=== PATIENT | female | born 1950 | race Caucasian/White ===

== ENCOUNTER 2020-09-12 11:09 | Outpatient (RCR) | payer MEDICARE, OTHER, SELFPAY ==
[2016-12-09 00:14] VITALS: BMI 29.5
== END 2020-09-12 23:59 ==
LOC: IMMUN 11:09
PROVIDERS: PCP Nurse Practitioner; Visit Provider Family Medicine
DX: Z23 Encounter for immunization (principal)
CPT/HCPCS: 0011A; 0012A; 91301

== ENCOUNTER → 2024-11-20 | Outpatient (CLI) | payer MEDICARE, OTHER, SELFPAY ==
--- NOTE | 2024-11-20 16:15 | MRI_ITS ---
EXAM: MRI right knee CLINICAL HISTORY: Knee pain COMPARISON: X-ray 10/11/2024 TECHNIQUE: Multiplanar spin echo magnetic resonance images of the right knee and a [place] strength magnet FINDINGS: 3 cm complex tear of the posterior horn of the medial meniscus including a 2 cm trizonal flap tear extending to the inferior surface and a 1 cm full-thickness radial tear of the root of the medial meniscus with extrusion of the body. Moderate medial compartment chondromalacia with subchondral edema of the medial femoral condyle. Associated medial capsulitis. The medial collateral ligament is intact. No lateral meniscus tear. No lateral compartment chondromalacia. No subchondral edema. The fibular collateral ligament is intact. Anterior cruciate ligament is intact. Posterior cruciate ligament is intact. Normal patellofemoral compartment. Small joint effusion. Ill-defined edema posteriorly may represent a ruptured Hooker's cyst. MRI/Lower Ext Joint Only (Routine) IMPRESSION: 3 cm complex tear of the posterior horn of the medial meniscus including a 1 cm trizonal radial tear of the root of the posterior horn with extrusion of the body, moderate chondromalacia, subchondral edema of the medial femoral condyle, and medial capsulitis. Small joint effusion with a possibly ruptured Hooker's cyst. Reading Location: [id number]
== END | disposition home or self-care (01) ==
LOC: MRI 11:03
PROVIDERS: PCP Internal Medicine; Referring Provider Orthopaedic Surgery; Visit Provider Orthopaedic Surgery
DX: M25.561 Pain in right knee (principal)
CPT/HCPCS: 73721

== ENCOUNTER 2025-01-18 10:30 | Outpatient (RCR) | payer MEDICARE, OTHER, SELFPAY ==
--- NOTE | 2024-12-01 09:00 | HP.PTEVAL ---
Patient's Visit Information Visit Information Visit Information: JESSICA LARSON is a 74 year old F referred to Physical Therapy by Dr. Paco Hunt DO with a diagnosis of R knee OA. Date of Evaluation: 12/01/24 Physical Therapist: Jason Medrano, DPT, OCS, CSCS Visit Plan Frequency: 3x /Week Duration: 4-6 Weeks Plan: 3x/week for 3-6 weeks IE HEP: SLR abd/flex/ext 3x10, quad stretch supine 30 4x, LAQ throughout day. Activity modification, ice, MH HO given. Please treat with progression of core and hip and knee strength NWB to WB with pics to HEP, then get out to gym to teach program. ice as needed. sTM to quad and stretch quad as needed. Subjective Subjective: xperieencing weakness in R knee. pain started in R knee sensitive a few months ago for no reason. Dr. Alvarado took x rays and they were decent with a little arthritis. naproxen given due to swelling. Got a brace. Stepping into car felt a pop and a pian and hard to put weight through about a month ago. Used walker that weekend. Brace came that weekend adn it helped. Saw doctor again and ordered MRI which she had last week and has slight tear in meniscus. Pain is lateral in knee however. Feels stress on the inside of the knee. Back on naproxen and improved. Currently intermittent medial knee pressure worse with standing and walking on cement. Over an hour. Pain laterally intermittent with being on feet alot. Grass walking feels weak. Starting to feel somewhat normal again now, 80%. Some days limp on R knee. L knee is healthy. Sleep is not great, feels tight and hurts to roll and makes her restless. Not employed. Spends day sewing and housework, walks to neighbors. Yard work. used to walk 2 miles at a time, not lately. No regular ex. Basic ADLs dressing , bathroom, shower all I. Steps to basement using L only as R knee feels weak. Pain R knee pain: Pain Intensity (Out of 10): 5 Pain Intensity Range: 0 and 5 Comment: comfortable resting Objective Objective: Walks without antalgia into PT today, some r knee pain with marching only. Steps are reciprocal with slight pain descending R. Needs rails and is weak on R vs L. [employer] chair and bed i without UE. B hip and knee aROM WFL and without pain except end range ext R. quads mod tight but otherwise flex WFL. weakness evident in hips at 3/5 abd and ext, 3+ flexion, knee is 4- flexion adn ext with some pain R knee. ankles are 4/5. reflexes 1/3 patella adn achilles B. Sensation LE WNL to gross light touch. Has instability in trunk wtih seated hip testing. UE AROM WFL. has stiffness throughout body with movement. - ant drawerrd, + bounce home R, - patellar grind, - varus and valgus. Balance/Special Test Scores Functional Gait Assessment Score: 27 % Disability: 10.0000 Lower Extremity Functional Score: 44 Goals Goal 1:: I appropriate HEP, strength LE an core Goal Time Frame: 4-6 Weeks Goal 2:: Pain 100% better in R knee and jennifer ctivities normal. Goal Time Frame: 4-6 Weeks Goal 3:: walk 2 miles without pain Goal Time Frame: 4-6 Weeks Rehabilitation Potential Rehabilitation Potential: Good Anticipated Interventions Patient/Client Instruction: Educate patient on: Condition and Plan of Care For the Purpose of:: To decrease pain, To increase ROM, To improve nutrient delivery to tissue, To improve muscle performance and motor function and To improve gait and locomotor functions Therapeutic Exercise to Include: Strength training, Flexibilty training, Passive ROM and Active ROM For the Purpose of:: To decrease pain, To increase ROM, To improve nutrient delivery to tissue, To improve muscle performance and motor function and To increase tolerance to activity/condition/position Manual Therapy Techniques to Include: Soft tissue mobilization For the Purpose of:: To decrease pain, To increase ROM and To improve nutrient delivery to tissue Cryotherapy (ice pack, ice massage): Yes For the Purpose of:: To decrease swelling/inflammation Text: Thank you for the opportunity to evaluate your patient. For Medicare and Medicare HMO plans, please review the plan of care and approve it. It will need to be FAXED BACK to us at [phone] for Medicare purposes. For Medicare only, by signing this I certify the plan of care. Please let me know if there are questions or concerns regarding this plan of care. Physician Signature: Date:
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
== END 2025-01-18 19:00 | disposition home or self-care (01) ==
LOC: PT 10:30
PROVIDERS: PCP Internal Medicine; Referring Provider Orthopaedic Surgery; Visit Provider Orthopaedic Surgery
DX: M25.561 Pain in right knee (principal); M11.261 Other chondrocalcinosis, right knee; M17.11 Unilateral primary osteoarthritis, right knee
CPT/HCPCS: 97110; 97161; 97530